=== PATIENT | male | born 1945 | race Caucasian/White ===

== ENCOUNTER 2017-07-16 09:56 | Outpatient (CLI) | payer OTHER ==
--- NOTE | 2017-07-16 11:29 | RAD ---
CHEST PA AND LATERAL: History: 71-year-old male with dyspnea. Comparison: 02-20-16 FINDINGS: Reversed total right shoulder replacement changes. Heart size is normal. The lungs are clear. No pneu monia, edema, or pleural effusion. IMPRESSION: No acute intrathoracic disease. Atherosclerosis of the aorta. POS: [facility]
== END 2017-07-16 09:57 | disposition home or self-care (01) ==
LOC: RAD 09:56
PROVIDERS: ATTEND Internal Medicine Critical Care Medicine
DX: R06.00 Dyspnea, unspecified (principal); I70.0 Atherosclerosis of aorta
CPT/HCPCS: 71046

== ENCOUNTER 2018-06-16 13:04 | Outpatient (CLI) | payer MEDICARE ==
--- NOTE | 2018-06-16 14:35 | RAD ---
LUMBAR SPINE THREE VIEWS: HISTORY: Lumbar disk degeneration. COMPARISON: Lumbar spine CT from 10/31/2016. FINDINGS: There is posterior spinal fusion hardware from L2-S1. Diskectomy change is present at L5-S1. In the neutral position, there is retrolisthesis of L2 over L3, approximately 4 mm, as well as fior listhesis of L4 over L5, approximately 3 mm. No significant translation with flexion or extension. IMPRESSION: 1. No significant listhesis with flexion or extension. 2. No evidence for hardware fracture. 3. Advanced degenerative disk space height loss at L1-L2. POS: [facility]
--- NOTE | 2018-06-16 15:41 | CT ---
CT IMAGES LUMBAR SPINE: 06/16/18 HISTORY: Disc degenerative changes. Axial images are obtained with coronal and sagittal reconstructions. The patient has had previous L4 and L5 laminectomies. Fusion hardware is seen fusing the L2, L3, L4, L5 and S1 levels. T12-L1: Unremarkable. L1-2: Vacuum disc changes seen at this level. Sclerotic changes seen in the inferior aspect of L1 and superior aspect of L2. There is minimal bilateral facet hypertrophy seen. The central canal is paten t. Mild bilateral neural foraminal narrowing also seen. L2-3: Disc space height loss is seen. There is retrolisthesis of L2 on L3 with bilateral facet hypert rophy seen. This results in moderate to severe L2-3 neural foraminal narrowing. L3-4: Diffuse desiccation is minimally seen. Bilateral facet hypertrophy is seen. Mild broad based di sc bulge is seen. L4-5: Disc desiccation seen. There is a broad disc bulge with bilateral facet hypertrophy seen. No s ignificant degree of central stenosis seen. Postsurgical scarring seen in the posterior aspect of the L4 and L5 levels. L5-S1: There is heterogeneity seen in the L5-S1 disc space with surgical hardware in place. End plate sclerotic changes also seen at the L5-S1 end plates adjacent to the surgical hardware. There is ante rolisthesis of L5 on S1 measuring approximately 5 mm. IMPRESSION: Mild to moderate neural foraminal narrowing seen. POS: [facility]
== END 2018-06-16 13:05 | disposition home or self-care (01) ==
LOC: TBSIIMAG 13:04
PROVIDERS: ATTEND Neurological Surgery
DX: M51.36 Other intervertebral disc degeneration, lumbar region (principal); M48.061 Spinal stenosis, lumbar region without neurogenic claudication
CPT/HCPCS: 72100; 72131; 76380

== ENCOUNTER 2018-08-20 00:02 | Outpatient (CLI) | payer MEDICARE ==
[2018-08-20 09:54] LABS: #Eosinphils 0.3 thou/uL (0.0-0.7); #Lymphocytes 1.3 thou/uL (1.20-3.40); #Monocytes 0.6 thou/uL (0.11-0.59); #Neutrophils 3.2 thou/uL (1.40-6.50); %Basophils 0.6 % (0.0-1.0); %Eosinophils 5.8 % (0.0-10.0); %Lymphocytes 24.2 % (21.0-51.0); %Monocytes 10.4 % (0.0-10.0); %Neutrophils 59.1 % (42.0-75.0); Hemoglobin 17.1 g/dL (14.0-18.0); Mean Corpuscular Hemoglobin 30.6 pg (27.0-31.0); Mean Platelet Volume 7.5 fL (7.4-10.4); Platelet Count 158 thou/uL (130-400); RBC Distribution Width 11.4 % (11.5-14.5); Red Blood Cell (RBC) Count 5.58 mill/uL (4.70-6.10); White Blood Cell (WBC) Count 5.5 thou/uL (4.8-10.8)
[2018-08-20 10:12] LABS: Anion Gap 13 mmol/L (10-20); BUN (Urea Nitrogen) 16 mg/dL (8.4-25.7); Calc. Creatinine Clearance 0 mL/min (70-130); Calcium 9.5 mg/dL (7.8-10.44); Carbon Dioxide 23 mmol/L (23-31); Chloride 98 mmol/L (98-107); Estimated GFR-MDRD 68; Glucose 174 mg/dL (83-110); Potassium 3.9 mmol/L (3.5-5.1); Sodium 130 mmol/L (136-145)
== END 2018-08-20 00:03 | disposition home or self-care (01) ==
LOC: LABBT 00:02
PROVIDERS: ATTEND Neurological Surgery
DX: Z01.818 Encounter for other preprocedural examination (principal); M51.36 Other intervertebral disc degeneration, lumbar region
CPT/HCPCS: 80048; 85025; 93005; 93010

== ENCOUNTER 2018-08-20 09:00 | Inpatient (IN) | payer MEDICARE ==
[2018-08-20 08:49] VITALS: BMI 26.9
[2018-08-24] MEDS ORDERED: Fentanyl 100 MCG/2 ML VIAL ONE ×2 (08:11→12:26)
[2018-08-24] MEDS ORDERED: Sodium Chloride 0.9% 10 ML ONE (08:25)
[2018-08-24] MEDS ORDERED: Morphine 10 MG/ML VIAL ONE (10:47)
--- NOTE | 2018-08-24 12:41 | OP ---
DATE OF PROCEDURE: 08/24/2018 DIRECT SUPPORT STAFF MEMBER: Phoenix Perkins PA-C PROCEDURE PERFORMED: Removal of hardware L2 to S1, exploration of spinal fusion, L5-S1, attempted replacement of bilateral S1 screws, L5-S1 posterolateral arthrodesis, BMP, cancellous bone chips. DESCRIPTION OF PROCEDURE: The patient was brought to the operating room and intubated. He was rolled in a prone position on gel-filled chest rolls. The previous incision was reopened and the prior hardware identified and the previous nuts were removed as were the rods. The S1 screws were quite loose as expected especially on the right side. These turned out to be 8.5 mm diameter screws, which were the largest diameter screws made. Furthermore, the size of the screw holes particularly on the right was too large to adequately support any further instrumentation. We next replaced the rods and nuts from L2 through L5. The L5-S1 surfaces were then prepared for the purpose of arthrodesis. A combination of BMP and cancellous bone chips and a Gelfoam pledget was laid over the bilateral surfaces at L5-S1 for the purpose of arthrodesis. Vancomycin powder was applied and the wound was then closed in anatomic layers. Job ID: [id number]
[2018-08-24] MEDS ORDERED: diphenhydrAMINE 50 MG/ML VIAL IVP PRN (14:47)
[2018-08-24] MEDS ORDERED: tiZANidine HCl 4 MG TAB PO PRN (14:47)
[2018-08-24] MEDS ORDERED: Milk Of Magnesia 30 ML UDCUP PO PRN (14:47)
[2018-08-24] MEDS ORDERED: Mag-Al 1200 mg/1200 mg/30 ML UDCUP PO PRN (14:47)
[2018-08-24] MEDS ORDERED: Promethazine HCl 25 MG/ML VIAL IM PRN (14:47)
[2018-08-24] MEDS ORDERED: diphenhydrAMINE 25 MG CAP PO PRN (14:47)
[2018-08-24] MEDS ORDERED: Morphine 4 MG/ML VIAL SLOW IVP PRN (14:47)
[2018-08-24] MEDS ORDERED: Promethazine HCl 12.5 MG SUPP PR PRN (14:47)
[2018-08-24] MEDS ORDERED: Promethazine 25 MG TAB PO PRN (14:47)
[2018-08-24] MEDS ORDERED: traMADol HCl 50 MG TAB PO PRN ×2 (14:47)
[2018-08-24] MEDS ORDERED: HYDROcodone/Acetaminophen 10/325 mg Tablet PO PRN ×2 (14:47)
[2018-08-24] MEDS ORDERED: Ondansetron PF 4 MG/2 ML Vial IM PRN (14:51)
[2018-08-24] MEDS ORDERED: Lidocaine 1% PF 5 ML VIAL ONE (15:16)
[2018-08-24] MEDS ORDERED: PROPOFOL 200 MG/20 ML VIAL ONE (15:16)
[2018-08-24] MEDS ORDERED: Dexamethasone 20 MG/5 ML VIAL ONE (15:16)
[2018-08-24] MEDS ORDERED: Glycopyrrolate 0.2 MG/ML 5 ML SYRINGE ONE (15:16)
[2018-08-24] MEDS ORDERED: Ondansetron PF 4 MG/2 ML Vial ONE (15:16)
[2018-08-24] MEDS ORDERED: Rocuronium Bromide 10 MG/ML (10ML VIAL) ONE (15:16)
[2018-08-24] MEDS ORDERED: PHENYLEPHRINE-NS 100 MCG/ML 10 ML SYRINGE ONE (15:16)
[2018-08-24] MEDS ORDERED: ePHEDrine 50 MG/ML VIAL ONE (15:16)
[2018-08-24] MEDS: CEFAZOLIN 2 GM in Premix Bag 1 BAG IVPB SCH (18:02)
[2018-08-24] MEDS ORDERED: PROVENTIL INHALER 6.7 G (200 INHALATIONS) INH PRN (19:47)
[2018-08-24] MEDS ORDERED: rOPINIRole HCl 2 MG TAB PO SCH (21:00)
[2018-08-25] MEDS: CEFAZOLIN 2 GM in Premix Bag 1 BAG IVPB SCH (01:13)
[2018-08-25 05:22] VITALS: TEMP 98.4
[2018-08-25] MEDS ORDERED: rOPINIRole HCl 2 MG TAB PO SCH (09:00)
[2018-08-25] MEDS ORDERED: Nebivolol HCl 5 MG TAB PO SCH (09:00)
[2018-08-25] MEDS ORDERED: Lisinopril 10 MG TAB PO SCH (09:00)
[2018-08-25 09:16] VITALS: BP 120/62
--- NOTE | 2018-08-25 11:28 | DIS ---
DATE OF ADMISSION: 08/24/2018 DATE OF DISCHARGE: 08/25/2018 HOSPITAL COURSE: The patient is a 73-year-old male status post revision of lumbar fusion at L5-S1. Following the surgery, he was transitioned to the Med/Surg floor, where he has had minimal pain and required no narcotics. He has been voiding appropriately and ambulating easily throughout the department with his walker. He has had no incisional drainage issues. This morning, on exam, he is awake, comfortable, in no acute distress. He sits up easily on his own. He has free active range of motion of all extremities. No focal motor weakness. We will plan to dismiss the patient to home. I have discussed home care precautions. We will follow up with the patient in 2 weeks for recheck in the office. Job ID: [id number]
--- NOTE | 2018-08-25 16:34 | CON ---
DATE OF CONSULTATION: 08/25/2018 PRIMARY CARE PROVIDER: Dr. Haseeb Perdue. CHIEF COMPLAINT: Hypertension. HISTORY OF PRESENT ILLNESS: Mr. Hunter is a pleasant 73-year-old gentleman, who was seen at [facility] on August 25, 2018, for management of medical comorbidities including hypertension. He underwent removal of hardware, L2-S1; exploration of spinal fusion, L5-S1; attempted replacement of bilateral S1 screws and L5-S1 posterolateral arthrodesis yesterday. He denies any chest pain or shortness of breath. He denies any fevers or chills. He denies any nausea or vomiting. He denies any abdominal pain. He reports that pain at the surgical site is manageable. REVIEW OF SYSTEMS: All other systems reviewed and found to be negative. PAST MEDICAL HISTORY: Hypertension, restless legs syndrome, and asthma. SURGICAL HISTORY: Left knee surgery, left thumb surgery x2, right carpal tunnel syndrome surgery, left shoulder rotator cuff surgery, right shoulder rotator cuff surgery, right shoulder replacement, cyst removal from spine, sinus polyp surgery, tonsillectomy, bilateral cataract surgery, and back surgeries x2. SOCIAL HISTORY: The patient denies tobacco use, alcohol use, or recreational drug use. FAMILY HISTORY: Lung cancer in both parents. ALLERGIES: ALMOND OIL, CODEINE, LEVOFLOXACIN, AND SULFA. HOME MEDICATIONS: 1. Ventolin HFA p.r.n. 2. Cephalexin 500 mg every 6 hours. 3. Peel p.r.n. 4. Tizanidine 4 mg every 6 hours as needed. 5. Lisinopril 10 mg in the morning. 6. Nebivolol 5 mg daily. 7. Ropinirole 2 mg as directed. PHYSICAL EXAMINATION: GENERAL: On examination, Mr. Hunter is awake and alert, not in acute distress. VITAL SIGNS: Blood pressure is 121/64, pulse is 97, respiratory rate 16, and oxygen saturation 90% on room air. He is afebrile. EYES: No scleral icterus, no conjunctival pallor. ENT: Moist mucosal membranes. No oropharyngeal erythema or exudates. NECK: Supple, nontender, trachea is midline. RESPIRATORY: Accessory muscles of breathing are not active. Chest wall movements are symmetric bilaterally. Lungs are clear to auscultation without wheeze, rhonchi, or crepitations. CARDIOVASCULAR: S1 and S2 are heard, regular. Peripheral pulses palpable. No carotid bruit, no pericardial rub. ABDOMEN: Soft, nontender, bowel sounds heard, no hepatomegaly, no splenomegaly. NEUROLOGIC: Cranial nerves 2 through 12 are intact. MUSCULOSKELETAL: Power is 5/5 in all four extremities. Status post back surgery. SKIN: No rashes. LYMPHATIC: No cervical lymphadenopathy. PSYCHIATRIC: Normal mood, normal affect, the patient is oriented to person, place, and time. LABORATORY DATA: Mr. Hunter's labs and investigations were reviewed. On August 20, he had normal white count, normal hemoglobin, normal platelet count. Hyponatremia with sodium 130, normal potassium, normal creatinine, and normal calcium. ASSESSMENT AND PLAN: Mr. Hunter is a pleasant 73-year-old gentleman, who was seen at [facility] on August 25, 2018. His problem list includes: 1. Hypertension: Blood pressure is controlled at this time. Continue beta kirill during the perioperative period. 2. Restless legs syndrome: Stable, continue Requip. 3. Asthma: Stable. Many thanks for allowing me to participate in your patient's care. Please feel free to contact me with any questions or concerns. LEVEL OF RISK: Moderate. LEVEL OF COMPLEXITY: Moderate. Job ID: [id number]
== END 2018-08-25 10:58 | disposition home or self-care (01) | DRG 460 ==
LOC: SURG A 08-24 06:45 → SURG B 08-24 13:07
PROVIDERS: ADMIT Neurological Surgery; ATTEND Neurological Surgery
PROC: 0SG30K1 Fusion of Lumbosacral Joint with Nonautologous Tissue Substitute, Posterior Approach, Posterior Column, Open Approach (ICD-10-PCS; principal; 2018-08-24)
PROC: 0SP304Z Removal of Internal Fixation Device from Lumbosacral Joint, Open Approach (ICD-10-PCS; 2018-08-24)
PROC: 3E0U0GB Introduction of Recombinant Bone Morphogenetic Protein into Joints, Open Approach (ICD-10-PCS; 2018-08-24)
DX: M51.36 Other intervertebral disc degeneration, lumbar region (principal); Z88.5 Allergy status to narcotic agent; Z88.2 Allergy status to sulfonamides
CPT/HCPCS: 76000; J0131; J2270; J3010; J3370; J3490

== ENCOUNTER 2018-09-09 10:51 | Outpatient (CLI) | payer MEDICARE ==
--- NOTE | 2018-09-09 11:56 | RAD ---
LUMBAR SPINE 2 VIEWS: Date: 09/09/18 INDICATION: Disc degeneration. History of prior back surgery. Back pain. Comparison made to lumbar films of 06/16/18. FINDINGS: Screws and rods are again noted in place at L2, L3, L4, and L5 levels. Interbody implant at L5-S1 wit h Grade I-II spondylolisthesis at L5-S1, which appears stable. There is a posterolisthesis at L2-3, w hich is unchanged. There is loss of disc space at L1-2 with mild wedging and anterior bridging osteop hytes, stable. Prominent facet hypertrophy again noted. Laminectomy changes. IMPRESSION: Postoperative and degenerative changes of lumbar spine appear stable from prior exam of 06/16/18. POS: [facility]
== END 2018-09-09 10:52 | disposition home or self-care (01) ==
LOC: TBSIIMAG 10:51
PROVIDERS: ATTEND Neurological Surgery
DX: M51.36 Other intervertebral disc degeneration, lumbar region (principal); M47.816 Spondylosis without myelopathy or radiculopathy, lumbar region
CPT/HCPCS: 72100

== ENCOUNTER 2018-10-06 15:23 | Emergency (ER) | payer MEDICARE ==
--- NOTE | 2018-10-06 16:12 | RAD ---
Exam: XR Knee Rt 4 View STANDARD HISTORY: Right knee pain after a fall. COMPARISON: None FINDINGS: Osteophytes are seen involving the lateral joint compartment and patellofemoral joint. There are calc ifications seen overlying the distal aspect of the patellar tendon which is likely related to prior injury. No acute fracture, dislocation, or other acute osseous abnormality is identified. IMPRESSION: No acute osseous abnormality is identified.
--- NOTE | 2018-10-06 16:56 | CT ---
Exam: Head CT without contrast HISTORY: Fall. Pain. Head injury. COMPARISON: none FINDINGS: Hemorrhage: No intraparenchymal hemorrhage or extra-axial hematoma. Brain parenchyma: Cortical martinez-white matter differentiation is preserved. No mass effect or midline shift. Basilar cisterns are patent. Ventricular system: Ventricles and sulci are patent and symmetric. Calvarium: Intact. Sinuses and mastoid air cells: Adequate mastoid air cell aeration. There is evidence of previous sino nasal surgery. Partial opacification the ethmoid air cells and frontal sinuses IMPRESSION: No acute intracranial process. No intracranial post traumatic sequelae.
--- NOTE | 2018-10-06 16:57 | CT ---
CT CERVICAL SPINE NONCONTRAST: DATE: 10/06/2018 HISTORY: cervical trauma FINDINGS: There are no jumped or perched facets. There is no evidence of acute fracture. The vertebral body hei ghts are maintained. There is no prevertebral soft tissue swelling. There are degenerative disc changes and facet osteoarthrosis. IMPRESSION: 1) Cervical spondylosis. 2) no evidence of acute fracture or acute traumatic subluxation.
--- NOTE | 2018-10-06 17:14 | RAD ---
RIGHT ANKLE TWO VIEW 10/06/18 HISTORY: Fall. Pain. COMPARISON: None. FINDINGS: Extensive enthesopathic changes and tendinosis of the Achilles tendon insertion involving the posteri or process of the calcaneus. Moderate sized plantar calcaneal spur. Old deltoid ligamentous injury. No acute displaced fracture or malalignment is appreciated. IMPRESSION: Chronic findings. No acute fracture or malalignment. POS: [facility]
--- NOTE | 2018-10-06 17:28 | CT ---
CT lumbar spine noncontrast: 10/06/2018 HISTORY: 73-year-old male with traumatic low back pain due to recent fall. FINDINGS: There are 5 lumbar-type vertebrae. There is no acute compression fracture. Other than minimal chronic anterior wedging of T12 and L1, vertebral body heights are maintained. Multilevel degenerative disc disease to varying degrees. Degenerative retrolisthesis of L2 on L3. The previously demonstrated bilateral pedicle screws at S1 have been removed, and there are lucent tracks there. The pedicle screws of L2, L3, L4, and L5, with vertical interlocking rods, remain. No evidence of hardware loosen ing. Grade 1 anterolisthesis of L4 on L5, and grade 1 anterolisthesis of L5 on S1. Metallic interbody cage material at L5-S1 disc space without bony bridges. Endplate irregularity at L5-S1. Vac uum disc phenomenon at L1-2. Midline laminectomy defect at L2-3, and at L3-4, L4/5, and L5-S1 contiguously. Large, broad fluid collection broadly abutting the posterior aspect of the thecal sac, occupying the large laminectomy defects, and occupying the posterior paraspinal musculature. No acute hematoma in the prevertebral space. IMPRESSION: 1.) Status post posterior lumbar fusion with multiple pedicle screws throughout most of the lumbar sp ine. 2.) Status post removal of the bilateral S1 pedicle screws. 3) status post laminectomies throughout much of the lumbar spine. 4) nonspecific large intraspinal postoperative fluid collection. 5) no evidence of acute compression fracture. 6) lumbar spondylosis with multilevel degenerative disc disease.
== END 2018-10-06 18:25 | disposition home or self-care (01) ==
LOC: ERS 15:23
DX: M25.561 Pain in right knee (principal); M25.571 Pain in right ankle and joints of right foot; R73.03 Prediabetes; I10 Essential (primary) hypertension; J45.909 Unspecified asthma, uncomplicated; Z79.899 Other long term (current) drug therapy; W01.0XXA Fall on same level from slipping, tripping and stumbling without subsequent striking against object, initial encounter
CPT/HCPCS: 70450; 72125; 72131

== ENCOUNTER 2019-02-03 15:55 | Outpatient (CLI) | payer MEDICARE ==
--- NOTE | 2019-02-03 16:45 | RAD ---
EXAM: LUMBAR SPINE TWO VIEWS: 02/03/19 COMPARISON: 09/09/18. HISTORY: Extensive lumbar fusion. Left lower extremity radiculopathy. FINDINGS: Redemonstration of five lumbar type vertebrae. There are bilateral transpedicular screws at L2, L3, L 4 and L5. Laminectomy defect at L4-L5. Metallic cage at the L5-S1 disc space. There is stable degener ative change at the L1-L2 level. Stable loss of disc space height at L2-L3. Redemonstration of 5 mm o f retrolisthesis of L2 upon L3, 2.7 mm of retrolisthesis of L3 upon L4 and suggestion of at least gra de I-II anterolisthesis of L5 upon S1. IMPRESSION: No significant change. Please refer to a CT performed on 10/06/18 for further detail. POS: [facility]
== END 2019-02-03 15:56 | disposition home or self-care (01) ==
LOC: TBSIIMAG 15:55
PROVIDERS: ATTEND Neurological Surgery
DX: M54.16 Radiculopathy, lumbar region (principal)
CPT/HCPCS: 72100

== ENCOUNTER 2019-04-19 13:45 | Emergency (ER) | payer MEDICARE ==
--- NOTE | 2019-04-19 15:08 | RAD ---
4 VIEWS RIGHT KNEE: Date: 04/19/19 COMPARISON: 10/06/18. HISTORY: Right knee pain after missing a step and feeling a pop in the lateral knee. FINDINGS: 4 views of the right knee show no evidence of acute fracture or dislocation. Moderate tricompartmenta l joint space narrowing and osteophyte formation seen consistent with osteoarthritis. IMPRESSION: Moderate right knee osteoarthritis without acute osseous abnormality. POS: [facility]
== END 2019-04-19 15:45 | disposition home or self-care (01) ==
LOC: SCSER 13:45
DX: M25.561 Pain in right knee (principal); E11.9 Type 2 diabetes mellitus without complications; I10 Essential (primary) hypertension; J45.909 Unspecified asthma, uncomplicated
CPT/HCPCS: 99283

== ENCOUNTER 2019-06-03 09:16 | Outpatient (CLI) | payer MEDICARE ==
[2019-06-03 13:16] LABS: #Eosinphils 0.3 thou/uL (0.0-0.7); #Lymphocytes 1.4 thou/uL (1.20-3.40); #Monocytes 0.6 thou/uL (0.11-0.59); #Neutrophils 5.3 thou/uL (1.40-6.50); %Basophils 0.4 % (0.0-1.0); %Eosinophils 3.7 % (0.0-10.0); %Lymphocytes 17.8 % (21.0-51.0); %Monocytes 8.3 % (0.0-10.0); %Neutrophils 69.8 % (42.0-75.0); Hemoglobin 16.9 g/dL (14.0-18.0); Mean Corpuscular Hemoglobin 29.5 pg (27.0-31.0); Mean Corpuscular Volume 89.4 fL (78.0-98.0); Mean Platelet Volume 7.6 fL (7.4-10.4); Platelet Count 167 thou/uL (130-400); RBC Distribution Width 11.8 % (11.5-14.5); Red Blood Cell (RBC) Count 5.72 mill/uL (4.70-6.10); White Blood Cell (WBC) Count 7.6 thou/uL (4.8-10.8)
[2019-06-03 13:26] LABS: INR-International Normal Ratio 1.1; Prothrombin Time 14.1 SEC (12.0-14.7)
[2019-06-03 13:45] LABS: Anion Gap 12 mmol/L (10-20); BUN (Urea Nitrogen) 17 mg/dL (8.4-25.7); Calc. Creatinine Clearance 0 mL/min (70-130); Calcium 9.3 mg/dL (7.8-10.44); Carbon Dioxide 26 mmol/L (23-31); Chloride 94 mmol/L (98-107); Estimated GFR-MDRD 66; Glucose 96 mg/dL (83-110); Potassium 4.1 mmol/L (3.5-5.1); Sodium 128 mmol/L (136-145)
== END 2019-06-03 09:17 | disposition home or self-care (01) ==
LOC: LABBT 09:16
PROVIDERS: ATTEND Orthopaedic Surgery
DX: Z01.818 Encounter for other preprocedural examination (principal); M17.11 Unilateral primary osteoarthritis, right knee
CPT/HCPCS: 80048; 85025; 85610; 87081; 93005; 93010

== ENCOUNTER 2019-07-06 05:40 | Day surgery (SDC) | payer MEDICARE ==
[2019-07-06] MEDS ORDERED: Fentanyl 100 MCG/2 ML VIAL ONE ×3 (06:00→09:58)
[2019-07-06] MEDS ORDERED: Tranexamic Acid 1,000 MG/10 ML VIAL ONE ×2 (06:02→09:43)
[2019-07-06] MEDS ORDERED: Sodium Chloride 0.9% 100 ML ONE (06:02)
[2019-07-06] MEDS ORDERED: Vancomycin 1.5 GRAM/300 ML BAG 1.5 GM/300 ML BAG ONE (06:09)
[2019-07-06] MEDS ORDERED: Midazolam HCl 2 mg/2 ml Vial ONE (06:30)
[2019-07-06 06:44] LABS: Prothrombin Time 13.3 SEC (12.0-14.7)
[2019-07-06] MEDS ORDERED: Bupivacaine 0.25% HCL 30 ML VIAL ONE (06:44)
[2019-07-06] MEDS ORDERED: Lidocaine 1% w/Epinephrine 1:100K 20 ML VIAL ONE (06:44)
[2019-07-06 06:50] LABS: #Basophils 0.1 thou/uL (0.0-0.2); #Eosinphils 0.5 thou/uL (0.0-0.7); #Lymphocytes 1.9 thou/uL (1.20-3.40); #Monocytes 0.8 thou/uL (0.11-0.59); #Neutrophils 3.4 thou/uL (1.40-6.50); %Eosinophils 7.4 % (0.0-10.0); %Lymphocytes 28.2 % (21.0-51.0); %Monocytes 12.5 % (0.0-10.0); %Neutrophils 50.9 % (42.0-75.0); Hemoglobin 15.7 g/dL (14.0-18.0); Mean Corpuscular HGB CONC 33.3 g/dL (32.0-36.0); Mean Corpuscular Hemoglobin 31.1 pg (27.0-31.0); Mean Corpuscular Volume 93.5 fL (78.0-98.0); Mean Platelet Volume 8.1 fL (7.4-10.4); Platelet Count 197 thou/uL (130-400); RBC Distribution Width 12.1 % (11.5-14.5); Red Blood Cell (RBC) Count 5.03 mill/uL (4.70-6.10); White Blood Cell (WBC) Count 6.6 thou/uL (4.8-10.8)
[2019-07-06 06:59] LABS: Anion Gap 13 mmol/L (10-20); BUN (Urea Nitrogen) 19 mg/dL (8.4-25.7); Calc. Creatinine Clearance 0 mL/min (70-130); Calcium 9.3 mg/dL (7.8-10.44); Carbon Dioxide 21 mmol/L (23-31); Chloride 99 mmol/L (98-107); Estimated GFR-MDRD 74; Glucose 111 mg/dL (83-110); Potassium 4.9 mmol/L (3.5-5.1); Sodium 128 mmol/L (136-145)
[2019-07-06] MEDS ORDERED: Acetaminophen 325 MG TAB PO PRN ×2 (07:37→10:46)
[2019-07-06] MEDS ORDERED: HYDROcodone/Acetaminophen 10/325 mg Tablet PO PRN ×3 (07:37→10:46)
[2019-07-06] MEDS ORDERED: Ondansetron PF 4 MG/2 ML Vial IVP PRN ×2 (07:37→10:46)
[2019-07-06] MEDS ORDERED: Promethazine HCl 25 MG/ML VIAL IM PRN ×3 (07:37→10:46)
[2019-07-06] MEDS ORDERED: traMADol HCl 50 MG TAB PO PRN ×3 (07:37→10:46)
[2019-07-06] MEDS ORDERED: Zolpidem Tartrate 5 MG TAB PO PRN ×2 (07:37→10:46)
[2019-07-06] MEDS ORDERED: Fentanyl 100 MCG/2 ML VIAL IV PRN (07:38)
[2019-07-06] MEDS ORDERED: Ondansetron HCl/PF 4 MG/2 ML Vial IVP PRN (09:27)
[2019-07-06] MEDS ORDERED: Ketorolac Tromethamine 30 MG/ML VIAL IVP PRN (09:27)
[2019-07-06] MEDS ORDERED: Promethazine HCl 25 MG/ML VIAL SLOW IVP PRN (09:27)
[2019-07-06] MEDS ORDERED: Meperidine HCl/PF 25 MG/ML VIAL SLOW IVP PRN (09:27)
--- NOTE | 2019-07-06 10:15 | RAD ---
XR Knee Rt 2 View HISTORY: Right knee osteoarthritis and arthroplasty FINDINGS: There are postop changes of total knee arthroplasty in good position and alignment. No fracture, disl ocation or bony destruction is seen. No perihardware lucency is identified to suggest loosening. Soft tissue air is present
[2019-07-06] MEDS ORDERED: diphenhydrAMINE 25 MG CAP PO PRN (10:46)
[2019-07-06 10:50] VITALS: BMI 26.1
[2019-07-06] MEDS ORDERED: Aspirin 81 mg Enteric Coated Tablet PO SCH (11:45)
[2019-07-06] MEDS: Dextrose 5 %-0.45 % NaCl 1,000 ML IV SCH ×2 (11:48→12:12)
[2019-07-06] MEDS: Ketorolac Tromethamine 30 MG/ML VIAL IVP SCH ×3 (12:12→23:52)
--- NOTE | 2019-07-06 12:13 | PDOC.HOSPP ---
- Subjective Encounter Date: 07/06/19 Encounter Time: 12:11 Subjective: Patient seen and examined. s/p Right total knee replacement. Reports some general abdominal cramping, denies nausea, vomiting. Consulted for medical management. - Objective Vital Signs & Weight: Vital Signs (12 hours) Temp Pulse Resp BP Pulse Ox 07/06/19 10:30 97.9 F 80 16 128/71 96 Weight Weight 182 lb Result Diagrams: 07/06/19 06:21 07/06/19 06:21 Hospitalist ROS - Review of Systems Constitutional: denies: fever, chills, sweats, weakness, malaise, other Respiratory: denies: cough, dry, shortness of breath, hemoptysis, SOB with excertion, pleuritic pain, sputum, wheezing, other Cardiovascular: denies: chest pain, palpitations, orthopnea, paroxysmal noc. dyspnea, edema, light headedness, other Gastrointestinal: denies: nausea, vomiting, melena (reports some generalized abdominal cramping), hematochezia Genitourinary: denies: dysuria - Medication Medications: Active Medications Generic Name Dose Route Start Last Admin Trade Name Freq PRN Reason Stop Dose Admin Aspirin 81 mg 07/06/19 11:45 07/06/19 11:49 Ecotrin PO 07/06/19 13:45 Not Given NOW [facility] Sodium Chloride 10 ml 07/06/19 09:00 07/06/19 11:48 Flush - Normal Saline IVF Not Given Q12HR ROMY - Exam General Appearance: NAD, awake alert General - other findings: Eating lunch while at bedside. Heart: RRR, no murmur, no gallops, no rubs Respiratory: CTAB, no wheezes, no rales, no ronchi Gastrointestinal: soft, non-tender, non-distended, no guarding, no rigidity, diminished bowl sounds Neurological: no focal deficits Psychiatric: normal affect, A&O x 3 Hosp A/P - Plan PT/OT HTN, stable Restless leg syndrome, chronic Chronic hyponatremia, stable Plan: Nerve block in place per anesthesia Continue ASA per [facility] protocol Continue PT per [facility] protocol Change IVF to NS @ 75 mls/hr Restart home meds Check BMP, Mg and hemogram in AM Teach IS, DVT and constipation prevention. Code Status - Full DPAO - spouse
[2019-07-06] MEDS ORDERED: Ondansetron PF 4 MG/2 ML Vial ONE (13:11)
[2019-07-06] MEDS ORDERED: Ropivacaine 0.2% HCl/PF (40 MG/20 ML VIAL) ONE (13:11)
[2019-07-06] MEDS ORDERED: Dexamethasone 20 MG/5 ML VIAL ONE (13:11)
[2019-07-06] MEDS ORDERED: PHENYLEPHRINE-NS 100 MCG/ML 10 ML SYRINGE ONE (13:11)
[2019-07-06] MEDS ORDERED: Lidocaine 1% PF 5 ML VIAL ONE (13:11)
[2019-07-06] MEDS ORDERED: PROPOFOL 200 MG/20 ML VIAL ONE (13:11)
[2019-07-06] MEDS ORDERED: Bupivacaine HCl 0.5%/Epinephrine 1:200,000/PF 30 ml Vial ONE (13:11)
[2019-07-06] MEDS ORDERED: EPHEDRINE 25 MG/5 ML SYRINGE ONE (13:11)
[2019-07-06] MEDS ORDERED: Ketorolac Tromethamine 30 MG/ML VIAL IVP SCH (14:00)
[2019-07-06] MEDS: CEFAZOLIN 2 GM in Premix Bag 1 BAG IVPB SCH ×2 (14:17→22:28)
[2019-07-06] MEDS: Sodium Chloride 0.9% 1,000 ML IV SCH (14:20)
--- NOTE | 2019-07-06 15:31 | HP ---
CHIEF COMPLAINT: Right knee osteoarthritis. HISTORY OF PRESENT ILLNESS: Mr. Pavel Hunter is a 73-year-old male who presents with pain of greater than a year, anteriorly, pain in sleeping position, difficulty with stiffness, immobile at times. The patient has AFO for activities. Pain is currently 4 to 8 out of 10, notes popping with pain of his motion. PAST MEDICAL HISTORY: Hypertension, ankylosing spondylitis, restless legs, rotator cuff arthropathy, polymyalgia rheumatica, snoring, anaphylaxis, acute sinusitis. SURGICAL HISTORY: Lumbar laminectomy and spinal fusion in 2002 with revision in 2014; rotator cuff repair in 2010, left; right rotator cuff repair; nasal polyp removal, MCP joint arthroplasty; carpal tunnel surgery, right; left knee arthroscopy; right reverse shoulder arthroplasty in 2016. ALLERGIES: INCLUDE LEVAQUIN, BACTRIM, SULFA, ALMOND, PSEUDOEPHEDRINE, AND CODEINE. MEDICATIONS: Currently are meloxicam, metoprolol, olmesartan, ropinirole, sildenafil, and Ventolin inhaler. SOCIAL HISTORY: The patient [facility] in [facility]. Nonsmoker. Occasional beer. No illicit drug use. REVIEW OF SYSTEMS: Noncontributory. PHYSICAL EXAMINATION: GENERAL: Alert and oriented male, in no acute distress, resting comfortably in bed. EXTREMITIES: Right lower extremity 0-120 degrees of motion. The patient has crepitus with range of motion. He has weakness of eversion and inversion from previous consequence of low back surgery. The patient is sensate intact distally. He has an antalgic gait. ER films show patellofemoral arthritic changes, chondrocalcinosis. ASSESSMENT: Right knee osteoarthritis with previous foot drop 2/2 fusion PLAN: The patient will be on-call for right total knee arthroplasty and his AFO for his right foot, this will also aid in ambulation. I discussed the benefits and risks of surgery including pain, scar, bleeding, infection, damage to vital structures, decreased range of motion, strength, need for further surgery, damage to vital structures, nerves, arteries, tendon, bone, need for further surgeries, revision, loss of life or limb, complication of anesthetics. He understands all these risks and benefits and elects to proceed. The patient will be taken to the operative suite for surgery. Job ID: [id number] [facility]
[2019-07-06] MEDS: Ropivacaine HCl/PF 250 ML in Premix Bag 1 BAG NERVE BLCK SCH (17:42)
[2019-07-06] MEDS: rOPINIRole HCl 2 MG TAB PO SCH (19:16)
[2019-07-06] MEDS ORDERED: Vancomycin HCl 1 GM in Premix Bag 1 BAG IVPB SCH (20:00)
[2019-07-06] MEDS: Losartan 25 MG TAB PO SCH (20:34)
[2019-07-06] MEDS: Aspirin 81 mg Enteric Coated Tablet PO SCH (20:34)
--- NOTE | 2019-07-06 22:46 | PRG ---
DATE OF SERVICE: 07/06/2019 PRIMARY CARE PHYSICIAN: Dr. Perdue. SUBJECTIVE: The patient was seen and examined. Briefly, the patient is a 73-year-old male with hypertension and chronic hyponatremia, underwent elective knee surgery. His pain is controlled at this time. OBJECTIVE: VITAL SIGNS: Reviewed. LUNGS: On examination, lungs were clear to auscultation bilaterally. HEART: S1 and S2 present, regular. His last blood pressure was 161/80. We will give him one dose of losartan tonight. Continue Toprol-XL 25 mg daily. I agree with a note by Hunter Tucker. I agree with assessment and plan as outline in the note. We will recheck labs in a.m. Job ID: [id number]
[2019-07-07] MEDS: Sodium Chloride 0.9% 1,000 ML IV SCH (00:52)
[2019-07-07 05:18] LABS: Hemoglobin 13.3 g/dL (14.0-18.0); Mean Corpuscular HGB CONC 35.7 g/dL (32.0-36.0); Mean Corpuscular Hemoglobin 31.6 pg (27.0-31.0); Mean Corpuscular Volume 88.4 fL (78.0-98.0); Platelet Count 145 thou/uL (130-400); RBC Distribution Width 11.4 % (11.5-14.5); Red Blood Cell (RBC) Count 4.21 mill/uL (4.70-6.10); White Blood Cell (WBC) Count 15.3 thou/uL (4.8-10.8)
[2019-07-07 05:38] LABS: Anion Gap 11 mmol/L (10-20); BUN (Urea Nitrogen) 20 mg/dL (8.4-25.7); Calc. Creatinine Clearance 74 mL/min (70-130); Calcium 8.1 mg/dL (7.8-10.44); Carbon Dioxide 21 mmol/L (23-31); Chloride 100 mmol/L (98-107); Estimated GFR-MDRD 71; Glucose 205 mg/dL (83-110); Magnesium 1.8 mg/dL (1.6-2.6); Potassium 4.1 mmol/L (3.5-5.1); Sodium 128 mmol/L (136-145)
[2019-07-07] MEDS: Ketorolac Tromethamine 30 MG/ML VIAL IVP SCH ×4 (05:54→23:05)
[2019-07-07] MEDS: Aspirin 81 mg Enteric Coated Tablet PO SCH ×2 (08:16→19:56)
[2019-07-07] MEDS: Multivitamin W/ Minerals 1 TAB PO SCH (08:17)
[2019-07-07] MEDS: Senokot S 8.6-50 MG TAB PO SCH ×2 (08:17→19:57)
[2019-07-07] MEDS: Ferrous Gluconate 324 MG TAB PO SCH ×2 (08:17→17:16)
[2019-07-07] MEDS: rOPINIRole HCl 2 MG TAB PO SCH ×2 (08:18→19:03)
[2019-07-07] MEDS ORDERED: Losartan 25 MG TAB PO SCH (09:00)
--- NOTE | 2019-07-07 12:50 | OP ---
DATE OF PROCEDURE: 07/06/2019 PREOPERATIVE DIAGNOSES: 1. Right knee osteoarthritis. 2. Right footdrop. POSTOPERATIVE DIAGNOSES: 1. Right knee osteoarthritis. 2. Right footdrop. 3. Degenerative quad tear. PROCEDURE PERFORMED: Right total knee arthroplasty. CUSTOMS ENTRY WRITER: Lacey Brothers PA-C. ANESTHESIOLOGIST: Rita Solitario MD. ANESTHESIA: Patient received an LMA with a single-shot sciatic and adductor canal. ESTIMATED BLOOD LOSS: 100 mL. TOURNIQUET TIME: 93 minutes at 300 mmHg. ANTIBIOTICS: Ancef 2g vancomycin 1.5. Patient received TXA 1 g. IMPLANTS: [place] Triathlon size 5 femur, size 4 CS tray with a 9 by size 4 CS X3 poly tibial component, and a Triathlon X3 asymmetric patella. COMPLICATIONS: None. HISTORY OF PRESENT ILLNESS: The patient presents with right knee pain which is present for several years. He has failed conservative measures with injection, anti-inflammatories, continued pain despite conservatively managed. The patient desired to proceed with right total knee arthroplasty. Discussed risks and benefits of surgery to include pain, scar, bleeding, infection, damage to vital structures, decreased range of motion and strength, fracture below the stem, need for further surgeries, loss of life or limb. The patient understood the risks and benefits and elected to proceed. DESCRIPTION OF PROCEDURE: Time-out was performed. The patient's right lower extremity as the operative site based on site, consent, and marking. After time-out, the patient's right lower extremity was prepped and draped in a sterile fashion. Tourniquet was brought up and left up for 93 minutes. Anterior midline approach, medial patellar arthrotomy, everted the patella, excised the patient' s fat pad, took down the medial soft tissue release. We mapped out the femur, cut 0 degrees of varus and valgus, 4 to 5 degrees of anterior slope cut respectively, 11 and 10. Through this, we placed our 3-degree external rotation, mapped out to a 5, cut our anterior and posterior chamfer cuts, placed our pickle fork and released the ACL, exposed the tibia, cut off the tibial tubercle to expose and pinned the tray into position, cut it in 0 degrees varus and valgus with 4 degrees of posterior slope. We placed lamina spreaders, decompressed the medial lateral compartment as well as the PCL, removed all the osteophytes, removed the menisci. We then pinned our tray into position. We floated it first. We felt we did not have a great position. The patient was actually still tight, went back and placed a box and re-cut through the anterior cut, caused it to be in a little bit of flexion. Our femur component went down better. At that point, was happy with the overall alignment and tracking, so we pinned our tibial tray into position, moved the patella. The patella was sized about a 24. We cut it down to about a 13 and placed an A29 patella. We had overall good alignment and tracking. When everting the patella, he was noted to have a little small partial quadriceps tendon rupture, degenerative. We left that given the entire sleeve was intact. We drilled and placed our patella, closed the track, noted tracked well. We drilled our lugs for our femur, cut our keel for tibia, removed all implants, cemented our tibia, removed excess cement. We placed our poly, placed our femur, cemented and removed all excess cement from patella, washed, removed, went back to ensure that we washed and debrided all the debris. We then went back and closed the arthrotomy with #2 Vicryls, 2 StrataFix, 0 StrataFix, 2-0 StrataFix and glue. The patient will be weightbearing as tolerated, will follow Edmonson protocol, will be followed inhouse. Job ID: [id number] [facility]
--- NOTE | 2019-07-07 13:08 | PDOC.HOSPP ---
- Subjective Encounter Date: 07/07/19 Encounter Time: 13:06 Subjective: Patient seen and examined for medical management. Denies any abdominal pain, N/V , reports passing flatus. No new complaints. No overnight events. - Objective Vital Signs & Weight: Vital Signs (12 hours) Temp Pulse Resp BP Pulse Ox 07/07/19 08:15 93 L 07/07/19 07:21 98.0 F 89 18 153/75 H 93 L 07/07/19 04:00 98.7 F 82 16 139/70 96 Weight Admit Weight 182 lb Weight 182 lb I&O: 07/06/19 07/07/19 07/08/19 06:59 06:59 06:59 Intake Total 2850 720 Output Total 3550 Balance -700 720 Result Diagrams: 07/07/19 04:52 07/07/19 04:52 Hospitalist ROS - Review of Systems Constitutional: denies: fever, chills, sweats, weakness, malaise, other Respiratory: denies: cough, dry, shortness of breath, hemoptysis, SOB with excertion, pleuritic pain, sputum, wheezing, other Cardiovascular: denies: chest pain, palpitations, orthopnea, paroxysmal noc. dyspnea, edema, light headedness, other Gastrointestinal: denies: nausea, vomiting, abdominal pain, diarrhea, constipation, melena, hematochezia, other Genitourinary: denies: dysuria, frequency, incontinence, hematuria, retention, other - Medication Medications: Active Medications Generic Name Dose Route Start Last Admin Trade Name Freq PRN Reason Stop Dose Admin Aspirin 81 mg 07/06/19 21:00 07/07/19 08:16 Ecotrin PO 81 mg BID ROMY Administration Ferrous Gluconate 324 mg 07/07/19 08:00 07/07/19 08:17 Fergon PO 324 mg BID-WM ROMY Administration Ropivacaine 250 ml/ Device 250 mls @ 0 mls/hr 07/06/19 07:37 07/06/19 17:42 NERVE BLCK 07/08/19 07:38 250 mls INF ROMY Administration As Directed Iron/Minerals/Multivitamins 1 tab 07/07/19 09:00 07/07/19 08:17 Theragran M PO 1 tab DAILY ROMY Administration Ketorolac Tromethamine 15 mg 07/06/19 12:00 07/07/19 12:38 Toradol IVP 07/08/19 06:01 15 mg Q6HR ROMY Administration Losartan Potassium 25 mg 07/06/19 21:00 07/06/19 20:34 Cozaar PO 25 mg HS ROMY Administration Ropinirole HCl 6 mg 07/06/19 21:00 07/07/19 08:18 Requip PO 4 mg BID ROMY Administration Senna/Docusate Sodium 2 tab 07/07/19 09:00 07/07/19 08:17 Senokot S PO 2 tab BID ROMY Administration Sodium Chloride 10 ml 07/06/19 09:00 07/07/19 12:38 Flush - Normal Saline IVF 10 ml Q12HR ROMY Administration - Exam General Appearance: NAD, awake alert Heart: RRR, no murmur, no gallops, no rubs Respiratory: CTAB, no wheezes, no ronchi Gastrointestinal: soft, non-tender, normal bowel sounds, no guarding, no rigidity Psychiatric: normal affect, A&O x 3 Hosp A/P - Plan Elevated Blood glucose HTN, chronic Restless leg syndrome, chronic Chronic hyponatremia, stable Plan: Patient reported prediabetic, last HA1C, 6.1, three months prior, not taking metformin at this time. Increased metoprolol to 50mg daily Nerve block remains in place per anesthesia Continue ASA per [facility] protocol ASA and PT per [facility] protocol IVF discontinued
[2019-07-07] MEDS: Ropivacaine HCl/PF 250 ML in Premix Bag 1 BAG NERVE BLCK SCH (17:15)
[2019-07-07] MEDS: Losartan 25 MG TAB PO SCH (19:56)
[2019-07-08 05:13] LABS: Hemoglobin 13.2 g/dL (14.0-18.0); Mean Corpuscular HGB CONC 34.1 g/dL (32.0-36.0); Mean Corpuscular Hemoglobin 30.9 pg (27.0-31.0); Mean Corpuscular Volume 90.7 fL (78.0-98.0); Mean Platelet Volume 7.6 fL (7.4-10.4); Platelet Count 133 thou/uL (130-400); RBC Distribution Width 11.9 % (11.5-14.5); Red Blood Cell (RBC) Count 4.28 mill/uL (4.70-6.10); White Blood Cell (WBC) Count 8.2 thou/uL (4.8-10.8)
[2019-07-08] MEDS: Ketorolac Tromethamine 30 MG/ML VIAL IVP SCH (05:44)
[2019-07-08] MEDS: rOPINIRole HCl 2 MG TAB PO SCH ×2 (08:38→19:36)
[2019-07-08] MEDS: Multivitamin W/ Minerals 1 TAB PO SCH (08:38)
[2019-07-08] MEDS: Ferrous Gluconate 324 MG TAB PO SCH ×2 (08:38→17:27)
[2019-07-08] MEDS: Aspirin 81 mg Enteric Coated Tablet PO SCH ×2 (08:38→19:37)
[2019-07-08] MEDS: Senokot S 8.6-50 MG TAB PO SCH ×2 (08:41→19:37)
[2019-07-08] MEDS ORDERED: Losartan 25 MG TAB PO SCH (09:45)
--- NOTE | 2019-07-08 11:41 | PDOC.HOSPP ---
- Subjective Encounter Date: 07/08/19 Encounter Time: 10:35 Subjective: Patient seen and examined. POD #2 R TNR. Denies any CP, palpitations, nausea and vomiting. No new complaints. No overnight events. - Objective Vital Signs & Weight: Vital Signs (12 hours) Temp Pulse Resp BP Pulse Ox 07/08/19 07:45 97.2 F L 97 12 132/87 96 Weight Admit Weight 182 lb Weight 182 lb I&O: 07/07/19 07/08/19 07/09/19 06:59 06:59 06:59 Intake Total 2850 1880 Output Total 3550 1700 Balance -700 180 Result Diagrams: 07/08/19 04:47 07/07/19 04:52 Hospitalist ROS - Review of Systems Constitutional: denies: fever, chills, sweats, weakness, malaise, other Respiratory: denies: cough, dry, shortness of breath, hemoptysis, SOB with excertion, pleuritic pain, sputum, wheezing, other Cardiovascular: denies: chest pain, palpitations, orthopnea, paroxysmal noc. dyspnea, edema, light headedness, other Gastrointestinal: denies: nausea, vomiting, abdominal pain, diarrhea, constipation, melena, hematochezia, other - Medication Medications: Active Medications Generic Name Dose Route Start Last Admin Trade Name Maneq PRN Reason Stop Dose Admin Aspirin 81 mg 07/06/19 21:00 07/08/19 08:38 Ecotrin PO 81 mg BID ROMY Administration Ferrous Gluconate 324 mg 07/07/19 08:00 07/08/19 08:38 Fergon PO 324 mg BID-WM ROMY Administration Iron/Minerals/Multivitamins 1 tab 07/07/19 09:00 07/08/19 08:38 Theragran M PO 1 tab DAILY ROMY Administration Losartan Potassium 25 mg 07/08/19 09:45 07/08/19 10:24 Cozaar PO 07/08/19 11:45 25 mg NOW ROMY Administration Metoprolol Succinate 25 mg 07/08/19 09:00 07/08/19 08:39 Toprol Xl PO 25 mg DAILY ROMY Administration Ropinirole HCl 6 mg 07/06/19 21:00 07/08/19 08:38 Requip PO 2 mg BID ROMY Administration Senna/Docusate Sodium 2 tab 07/07/19 09:00 07/08/19 08:41 Senokot S PO Not Given BID ROMY Sodium Chloride 10 ml 07/06/19 09:00 07/08/19 08:42 Flush - Normal Saline IVF 10 ml Q12HR ROMY Administration - Exam General Appearance: NAD, awake alert Heart: RRR, no murmur, no gallops, no rubs Respiratory: CTAB, no wheezes, no rales, no ronchi Psychiatric: normal affect, A&O x 3 Hosp A/P - Plan HTN, chronic Restless leg syndrome, chronic Chronic hyponatremia, stable Plan: Continue Metoprolol 25mg and losartan 25mg daily ASA and PT per [facility] protocol
[2019-07-09 05:27] LABS: Hemoglobin 13.3 g/dL (14.0-18.0); Mean Corpuscular HGB CONC 34.5 g/dL (32.0-36.0); Mean Corpuscular Hemoglobin 31.4 pg (27.0-31.0); Mean Platelet Volume 7.8 fL (7.4-10.4); Platelet Count 145 thou/uL (130-400); RBC Distribution Width 11.5 % (11.5-14.5); Red Blood Cell (RBC) Count 4.25 mill/uL (4.70-6.10); White Blood Cell (WBC) Count 9.6 thou/uL (4.8-10.8)
[2019-07-09] MEDS: Aspirin 81 mg Enteric Coated Tablet PO SCH (08:05)
[2019-07-09] MEDS: Ferrous Gluconate 324 MG TAB PO SCH (08:05)
[2019-07-09] MEDS: rOPINIRole HCl 2 MG TAB PO SCH (08:05)
[2019-07-09] MEDS: Multivitamin W/ Minerals 1 TAB PO SCH (08:05)
[2019-07-09] MEDS: HYDROcodone/Acetaminophen 10/325 mg Tablet PO PRN ×2 (08:06→12:59)
[2019-07-09] MEDS: Senokot S 8.6-50 MG TAB PO SCH (08:08)
[2019-07-09] MEDS ORDERED: Losartan 25 MG TAB PO SCH (09:00)
[2019-07-09 11:48] VITALS: BP 121/72; TEMP 97.5
== END 2019-07-09 14:36 | disposition home or self-care (01) ==
LOC: SDC 05:40 → SURG B 07:00 → SDC 07-09 14:36
PROVIDERS: ATTEND Orthopaedic Surgery
PROC: 0SRC0JZ Replacement of Right Knee Joint with Synthetic Substitute, Open Approach (ICD-10-PCS; principal; 2019-07-06)
DX: M17.11 Unilateral primary osteoarthritis, right knee (principal); M21.371 Foot drop, right foot; S76.111A Strain of right quadriceps muscle, fascia and tendon, initial encounter; I10 Essential (primary) hypertension; E87.1 Hypo-osmolality and hyponatremia; G25.81 Restless legs syndrome; M45.9 Ankylosing spondylitis of unspecified sites in spine; M35.3 Polymyalgia rheumatica; R73.03 Prediabetes; Z79.82 Long term (current) use of aspirin; Z79.899 Other long term (current) drug therapy; Z88.1 Allergy status to other antibiotic agents; Z88.2 Allergy status to sulfonamides; Z88.5 Allergy status to narcotic agent; Z91.018 Allergy to other foods
CPT/HCPCS: 36415; 80048; 83735; 85025; 85027; 85610; C1713; C1776; J0670; J0690; J1100; J1885; J2001; J2250; J2405; J2704; J2795; J3010; J3370; J3490; S0020

== ENCOUNTER 2020-06-06 10:19 | Outpatient (CLI) | payer MEDICARE ==
--- NOTE | 2020-06-06 10:35 | RAD ---
XR Chest Pa Lat STANDARD History: Dyspnea Comparison: None. Findings: Lungs are clear. No pneumothorax or effusion. Cardiac silhouette and mediastinal contours a re within normal limits. 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 Impression: No acute intrathoracic abnormality.
== END 2020-06-06 10:20 | disposition home or self-care (01) ==
LOC: BICRAD 10:19
PROVIDERS: ATTEND Internal Medicine Critical Care Medicine
DX: R06.00 Dyspnea, unspecified (principal)
CPT/HCPCS: 71046

== ENCOUNTER 2021-05-02 07:43 | Outpatient (CLI) | payer MEDICARE | END 2021-05-02 07:44 | disposition home or self-care (01) | LOC: SCSMRI 07:43 | PROVIDERS: ATTEND Neurological Surgery | DX: M47.26 Other spondylosis with radiculopathy, lumbar region (principal); M43.17 Spondylolisthesis, lumbosacral region; M48.07 Spinal stenosis, lumbosacral region; Z98.890 Other specified postprocedural states | CPT/HCPCS: 72148 ==

== ENCOUNTER 2021-05-08 08:54 | Outpatient (CLI) | payer MEDICARE | END 2021-05-08 08:55 | disposition home or self-care (01) | LOC: RAD 08:54 | PROVIDERS: ATTEND Internal Medicine Critical Care Medicine | DX: R06.00 Dyspnea, unspecified (principal) | CPT/HCPCS: 71046 ==

== ENCOUNTER 2023-12-19 09:50 | Outpatient (CLI) | payer MEDICARE | END 2023-12-19 09:51 | disposition home or self-care (01) | LOC: BICMAMMO 09:50 | PROVIDERS: ATTEND Family Medicine | DX: Z13.820 Encounter for screening for osteoporosis (principal); M45.0 Ankylosing spondylitis of multiple sites in spine; M85.851 Other specified disorders of bone density and structure, right thigh | CPT/HCPCS: 77080 ==

== ENCOUNTER 2024-02-26 22:34 | Emergency (ER) | payer MEDICARE ==
[2024-02-26 23:23] LABS: Bacteria/HPF None Seen HPF (None Seen); Bilirubin Negative (Negative); Blood, Urine Negative (Negative); CAUTI Indications for Culture Pelvic or flank pain; Clarity Clear (Clear); Glucose, Urine (Dipstick) 200 mg/dL (Negative); Ketone, Urine Negative (Negative); Leukocyte Negative Leu/uL (Negative); Nitrite Negative (Negative); Protein, Urine (Dipstick) Negative (Neg-Trace); RBC/HPF 0-3 HPF (0-3); Specific Gravity, Urine 1.004 (1.002-1.036); Squamous Epithelial None Seen HPF (0-3); Urobilinogen Normal mg/dL (Less than 2); WBC/HPF 0-3 HPF (0-3); pH, Urine 5.5 (5.0-9.0)
[2024-02-26 23:25] LABS: Urine Culture Reflex No No
[2024-02-27 00:02] LABS: #Basophils 0.04 10x3/uL (0.0-0.2); %Basophils 0.4 % (0.0-1.0); %Eosinophils 1.3 % (0.0-10.0); %Monocytes 7.8 % (0.0-10.0); %Neutrophils 63.8 % (42.0-75.0); Hematocrit 38.9 % (42.0-52.0); Hemoglobin 13.5 g/dL (14.0-18.0); Mean Corpuscular HGB CONC 34.7 g/dL (32.0-36.0); Mean Corpuscular Hemoglobin 30.3 pg (27.0-31.0); Mean Corpuscular Volume 87.2 fL (78.0-98.0); Mean Platelet Volume 10.2 fL (7.4-10.4); Platelet Count 187 10x3/uL (130-400); RBC Distribution Width 13.2 % (11.5-14.5); Red Blood Cell (RBC) Count 4.46 mill/uL (4.70-6.10)
[2024-02-27 00:32] LABS: Anion Gap 14 mmol/L (10-20); BUN (Urea Nitrogen) 29 mg/dL (8.4-25.7); Calc. Creatinine Clearance 0 mL/min (70-130); Carbon Dioxide 25 mmol/L (23-31); Chloride 98 mmol/L (98-107); Sodium 133 mmol/L (136-145)
[2024-02-27 00:33] LABS: ALT (SGPT) 26 U/L (8-55); AST (SGOT) 21 U/L (5-34); Albumin 3.6 g/dL (3.4-4.8); Alkaline Phosphatase 56 U/L (40-110); Bilirubin, Total 0.6 mg/dL (0.2-1.2); Calcium 9.4 mg/dL (7.8-10.44); Estimated GFR 67; Globulin 3.3 g/dL (2.4-3.5); Glucose 200 mg/dL (83-110); Lipase 47 U/L (8-78); Protein, Total 6.9 g/dL (5.8-8.1)
== END 2024-02-26 23:40 | disposition left against medical advice (07) ==
LOC: ERS 22:34
DX: R73.9 Hyperglycemia, unspecified (principal)
CPT/HCPCS: 36415; 80053; 81001; 83690; 85025